=== PATIENT | male | born 1970 | race Caucasian/White ===

== ENCOUNTER → 2017-12-12 | Day surgery (SDC) | payer OTHER ==
--- NOTE | 2017-12-12 14:59 | RADIOLOGY REPORT (SQ) ---
EXAM DESCRIPTION: ARTHRO SHOULDER INJECTION; FLUORO/NEEDLE PLACEMENT COMPLETED DATE/TIME: 12/12/2017 1:33 pm REASON FOR STUDY: RECENT RETEAR COMPARISON: None. FLUOROSCOPY TIME: 7 seconds 2 digital radiographic images saved to PACS. LIMITATIONS: None. PROCEDURE: Procedure, risks, benefits and alternatives explained to patient who then gave written co nsent. The right posterior glenohumeral joint was marked and a time out was called for correct proce dure verification. Posterior entry site marked using fluoroscopic guidance. Shoulder prepped and dr aped using sterile technique. Local anesthesia achieved using 5 mL of 1% lidocaine injection. 22 ga uge spinal needle introduced into the joint space under direct fluoroscopic visualization. Non-ionic contrast instilled to confirm intra-articular position. Dilute gadolinium solution then injected. Ne edle removed and entry site covered with sterile bandage. No immediate complications noted. TECHNIQUE: Digital images acquired during fluoroscopy and stored on PACS. Patient immediately take n to the MR suite for additional imaging. INJECTION LOCATION: Posterior right glenohumeral joint CONTRAST TYPE AND AMOUNT: 1 mL of Isovue-300 was injected to confirm intra-articular needle placement followed by 10 mL of dilute Prohance/Saline mixture. IMPRESSION: SUCCESSFUL NEEDLE PLACEMENT AND INJECTION FOR RIGHT SHOULDER MR ARTHROGRAM USING POSTERI OR APPROACH. COMMENT: Quality ID 145: Final reports for procedures using fluoroscopy that document radiation exp osure indices, or exposure time and number of fluorographic images (if radiation exposure indices are not available) TECHNICAL DOCUMENTATION: JOB ID: [id number] [employer]- All Rights Reserved Reading location - IP/workstation name: [email or web address]
--- NOTE | 2017-12-12 14:59 | RADIOLOGY REPORT (SQ) ---
EXAM DESCRIPTION: ARTHRO SHOULDER INJECTION; FLUORO/NEEDLE PLACEMENT COMPLETED DATE/TIME: 12/12/2017 1:33 pm REASON FOR STUDY: RECENT RETEAR COMPARISON: None. FLUOROSCOPY TIME: 7 seconds 2 digital radiographic images saved to PACS. LIMITATIONS: None. PROCEDURE: Procedure, risks, benefits and alternatives explained to patient who then gave written co nsent. The right posterior glenohumeral joint was marked and a time out was called for correct proce dure verification. Posterior entry site marked using fluoroscopic guidance. Shoulder prepped and dr aped using sterile technique. Local anesthesia achieved using 5 mL of 1% lidocaine injection. 22 ga uge spinal needle introduced into the joint space under direct fluoroscopic visualization. Non-ionic contrast instilled to confirm intra-articular position. Dilute gadolinium solution then injected. Ne edle removed and entry site covered with sterile bandage. No immediate complications noted. TECHNIQUE: Digital images acquired during fluoroscopy and stored on PACS. Patient immediately take n to the MR suite for additional imaging. INJECTION LOCATION: Posterior right glenohumeral joint CONTRAST TYPE AND AMOUNT: 1 mL of Isovue-300 was injected to confirm intra-articular needle placement followed by 10 mL of dilute Prohance/Saline mixture. IMPRESSION: SUCCESSFUL NEEDLE PLACEMENT AND INJECTION FOR RIGHT SHOULDER MR ARTHROGRAM USING POSTERI OR APPROACH. COMMENT: Quality ID 145: Final reports for procedures using fluoroscopy that document radiation exp osure indices, or exposure time and number of fluorographic images (if radiation exposure indices are not available) TECHNICAL DOCUMENTATION: JOB ID: [id number] [employer]- All Rights Reserved Reading location - IP/workstation name: [email or web address]
--- NOTE | 2017-12-12 15:59 | RADIOLOGY REPORT (SQ) ---
EXAM DESCRIPTION: MRI RT UPPER JOINT WITH COMPLETED DATE/TIME: 12/12/2017 2:00 pm REASON FOR STUDY: RECENT RETEAR COMPARISON: None. TECHNIQUE: Right shoulder images acquired and stored on PACS. Oblique coronal, oblique sagittal, and axial imaging to include fat sensitive sequences as T1, water sensitive sequences as FST2/STIR, and contrast sensitive sequences as FST1. LIMITATIONS: None. FINDINGS: JOINT DISTENTION: Adequate distention for interpretation. No leakage of intra-articular c ontrast into the subacromial/subdeltoid bursa. BONE MARROW AND CORTEX: Normal. No significant osteophytes. No edema or defects. AC JOINT: Type II acromion. Moderate acromioclavicular joint hypertrophy is present without narrowing of the subacromial space. No subacromial/subdeltoid bursal fluid. GLENOHUMERAL JOINT: Moderate chondromalacia over the humeral head with moderate bony spurring, best s hown on coronal image 8 ROTATOR CUFF: There is ferromagnetic artifact along the anterior edge of the supraspinatus tendon. S ome high signal in the anterior edge supraspinatus tendon is present from tendinopathy. Infraspinatu s, teres minor, subscapularis are otherwise unremarkable. LABRUM AND BICEPS LABRAL COMPLEX: Intra-articular long head biceps tendon is intact. There is a tack at its attachment to the superior labrum. Glenoid labrum is diffusely small and fragmented with mul tiple tacks along the anterior and posterior labrum. Inferior glenohumeral ligament intact without thickening or tear. No paralabral cysts. ADJACENT SOFT TISSUES: No masses or nodes. OTHER: No other significant finding. 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 Remainder of the labrum is diffusely small and fragmented w ith evidence of prior repair Tendinopathy anterior edge supraspinatus tendon TECHNICAL DOCUMENTATION: JOB ID: [id number]- All Rights Reserved Reading location - IP/workstation name: [email or web address], [facility]
== END ==
LOC: EDSTATUS 13:00 → RAD 13:04
PROVIDERS: ATTEND Orthopaedic Surgery
DX: M19.011 Primary osteoarthritis, right shoulder (principal); S43.491A Other sprain of right shoulder joint, initial encounter; X58.XXXA Exposure to other specified factors, initial encounter
CPT/HCPCS: 23350; 77002